=== PATIENT | female | born 1940 | race Caucasian/White ===

== ENCOUNTER 2016-09-30 16:19 | Inpatient (IN) | payer MEDICARE, OTHER ==
--- NOTE | ~2016-09-30 | EC ---
PATIENT:CAROL VIEIRA DATE OF SERVICE: 10/02/16 SEX: F MEDICAL RECORD: [id number] DATE OF : 42 LOCATION:D. D.212 AGE OF PATIENT: 75 ADMISSION DATE: 10/02/16 REFERRING PHYSICIAN: INTERPRETING PHYSICIAN: DAIN PALOMO M.D. ECHOCARDIOGRAM REPORT ECHO CHARGES 4 ECHO COMPLETE CLINICAL DIAGNOSIS: AFIB ECHOCARDIOGRAPHIC MEASUREMENTS (adult normal given) AC root (d.<3.7cm) 3.6 LV Septum d (<1.2 cm> 1.9 Valve Excursion 1.9 LV Septum (systole) 2.1 Left Atria (s.<4.0cm> 4.2 LVPW d(<1.2cm) 1.6 RV (d.<2.3cm) 3.5 LVPW (sytole) 1.7 LV diastole(<5.6CM) 5.4 MV E-F(>70mm/sec) LV systole 3.6 LVOT Diameter 1.9 MV exc.(>10mm) 1.6 Est.ejection fraction (50-75%) Pericardial Effusion N DOPPLER: LVIT A 66.0 E 4109 LA RVSP 44 LVOT 95 AOP1/2T 547 Asc. Ao 332 RVOT 67 RA PA 128 AV Gradient Peak 9.00 AV Mean 4.75 AV Area 1.9 MV Gradient Peak 8.12 MV Mean 2.87 MV Area COMMENTS: Glass Unloading Equipment Tender: Jessenia VACA Pump Mechanic:Jessenia Palomo TAPE# PACS DATE OF SERVICE: 10/01/2016 REFERRING PHYSICIAN: Dr. Griffiths. INDICATION: Atrial fibrillation. DESCRIPTION: Left ventricle demonstrates left ventricular hypertrophy. No wall motion abnormalities are noted. Estimated ejection fraction in the order of 55%. Mitral valve is structurally normal. There is moderate regurgitation noted. There is no evidence of prolapse. Left atrium is mildly dilated. The ECHOCARDIOGRAM REPORT [id number] CAROL VIEIRA aortic valve is trileaflet. There is mild insufficiency seen, but no evidence is stenosis. Right ventricle is mildly dilated. Tricuspid valve is structurally normal. There is mild regurgitation seen. Right ventricular systolic pressure is measured at 44 mmHg. There is no pericardial effusion seen. IMPRESSION: 1. Left ventricular hypertrophy with preserved ejection of 55%. 2. Moderate mitral regurgitation. 3. Mild aortic insufficiency. 4. Mild tricuspid regurgitation. TRANSINT:[id number] Voice Confirmation ID: [id number] DOCUMENT ID: [id number] DAIN PALOMO M.D. CC: [id number] DICTATION DATE: 10/02/16 1236 BUSINESS INTELLIGENCE ENGINEER: 10/03/16 0008 DIS IN 10/02/16 [facility] [address] [id number]
[2016-09-30 17:25] LABS: BASOPHILS 0.2 % (0-2); EOSINOPHILS 1.2 % (0-7); HEMATOCRIT 39.5 % (36.0-48.0); HEMOGLOBIN 13.6 g/dL (12-16); IMMATURE GRANULOCYTES 0.4 % (0-5); LYMPHOCYTES 9.2 % (15-50); MCH 33.5 pg (26.0-34.0); MCHC 34.4 g/dL (31.0-37.0); MCV 97.3 fL (80.0-100.0); MEAN PLATELET VOLUME 10.4 fL (7.4-10.4); PLATELET COUNT 160 10x3/uL (130-400); RBC 4.06 10x6/uL (4.00-5.40); RDW 12.8 % (11.5-14.5)
[2016-09-30 17:59] LABS: ALBUMIN 3.9 g/dL (3.4-5.0); ALKALINE PHOSPHATASE 115 U/L (46-116); ALT (SGPT) 33 U/L (10-68); BILIRUBIN - TOTAL 0.65 mg/dL (0.2-1.3); CALC OSMOLALITY 284 mosm/kg (275-300); CALCIUM 9.7 mg/dL (8.5-10.1); CARBON DIOXIDE 26.8 mmol/L (21.0-32.0); CHLORIDE - SERUM 104 mmol/L (98-107); CREATININE - SERUM 1.1 mg/dL (0.6-1.3); GLUCOSE 104 mg/dL (74-106); POTASSIUM - SERUM 3.8 mmol/L (3.5-5.1); PROTEIN - SERUM 7.4 g/dL (6.4-8.2); SODIUM 141 mmol/L (136-145); UREA NITROGEN 24 mg/dL (7-18); eGFR NON AFRICAN AMERICAN 51 mL/min (90-120)
[2016-09-30 18:10] LABS: CHOL - HDL RATIO 2.7 ratio (2.3-4.1); CHOLESTEROL, TOTAL 166 mg/dL (0-200); CREATINE KINASE 74 UL (21-215); HDL CHOLESTEROL 61 mg/dL (32-96); LDL CHOLESTEROL 81 mg/dL (0-100); LDL-HDL RATIO 1.3 ratio (1.5-3.5); PRO BNP 1887 pg/mL (0-125); TRIGLYCERIDE 121 mg/dL (30-200)
[2016-09-30 18:13] LABS: TROPONIN-I < 0.017 ng/mL (0.000-0.060)
[2016-09-30 19:27] LABS: APPEARANCE CLEAR (CLEAR); BILIRUBIN NEGATIVE (NEGATIVE); COLOR STRAW (YELLOW); GLUCOSE NEGATIVE (NEGATIVE); KETONE NEGATIVE (NEGATIVE); LEUKOCYTE ESTERASE TRACE (NEGATIVE); NITRITE POSITIVE (NEGATIVE); PROTEIN NEGATIVE (NEGATIVE); UROBILINOGEN NORMAL (NORMAL)
[2016-09-30 19:28] LABS: BACTERIA MANY /hpf (NONE SEEN); RED CELLS - URINE OCC /hpf (0-5); WHITE CELLS - URINE 0-5 /hpf (0-5)
--- NOTE | 2016-09-30 20:13 | NUR ---
REPORT RECIEVED FROM KARL FAIRCHILD
--- NOTE | 2016-09-30 21:12 | NUR ---
ARRIVED TO FLOOR VIA WHEELCHAIR, ACCOMPANIED BY HOSPITAL STAFF. ORIENTED TO UNIT AND PLACED ON TELEMETRY. CALL LIGHT IN REACH. SEE NURSE ASSESSMENT. WILL CONTINUE TO MONITOR.
[2016-10-01] MEDS ORDERED: OXYBUTYNIN CHLOR5 MG PO (00:09)
[2016-10-01] MEDS ORDERED: LOVASTATIN40 MG PO (00:11)
[2016-10-01] MEDS ORDERED: MAXZIDE 75/501 TAB PO (00:12)
[2016-10-01] MEDS ORDERED: DIPROLENE 0.05%60 M1 TOPICAL (00:12)
[2016-10-01] MEDS ORDERED: OMEPRAZOLE20 M1 PO (00:13)
[2016-10-01] MEDS ORDERED: TOPROL XL25 MG PO (00:14)
[2016-10-01 04:00] VITALS: BP 134/61
[2016-10-01 05:44] LABS: BASOPHILS 0.6 % (0-2); EOSINOPHILS 2.7 % (0-7); HEMATOCRIT 39.5 % (36.0-48.0); HEMOGLOBIN 13.4 g/dL (12-16); IMMATURE GRANULOCYTES 0.4 % (0-5); LYMPHOCYTES 11.6 % (15-50); MCH 33.4 pg (26.0-34.0); MCHC 33.9 g/dL (31.0-37.0); MCV 98.5 fL (80.0-100.0); MEAN PLATELET VOLUME 10.2 fL (7.4-10.4); MONOCYTES 12.8 % (2-11); NEUTROPHILS 71.9 % (40-80); RBC 4.01 10x6/uL (4.00-5.40); WBC 4.8 10x3/uL (4.8-10.8)
[2016-10-01 06:19] LABS: PLATELET COUNT 199 10x3/uL (130-400)
[2016-10-01 06:20] LABS: ALBUMIN 3.6 g/dL (3.4-5.0); ALKALINE PHOSPHATASE 99 U/L (46-116); ALT (SGPT) 33 U/L (10-68); CALC OSMOLALITY 287 mosm/kg (275-300); CALCIUM 9.6 mg/dL (8.5-10.1); CARBON DIOXIDE 25.4 mmol/L (21.0-32.0); CHLORIDE - SERUM 105 mmol/L (98-107); GLUCOSE 91 mg/dL (74-106); PRO BNP 1455 pg/mL (0-125); SODIUM 143 mmol/L (136-145); TROPONIN-I < 0.017 ng/mL (0.000-0.060); UREA NITROGEN 21 mg/dL (7-18); eGFR NON AFRICAN AMERICAN 57 mL/min (90-120)
[2016-10-01 06:23] LABS: POTASSIUM - SERUM 3.2 mmol/L (3.5-5.1)
--- NOTE | 2016-10-01 07:30 | NUR ---
RECEIVED PT IN BED AAOX4 RESP UNLABORED DENIES ANY NEEDS AT THIS TIME SHARP PAIN UNDER RT BREAST 07/10 WILL CONTINUE TO MONITOR
[2016-10-01 08:41] VITALS: BP 146/54
[2016-10-01 12:54] VITALS: BP 123/57
[2016-10-01 16:20] VITALS: BP 116/67; BP 125/57
[2016-10-01 19:00] VITALS: BP 121/52
--- NOTE | 2016-10-01 20:15 | NUR ---
PT RECEIVED LYING IN BED RESTING QUIETLY AT THIS TIME WITH EYES CLOSED. AROUSED EASILY. ASSESSMENT COMPLETED PER FLOW SHEET AT THIS TIME. PT DENIES NEEDS AT THIS TIME. BED LOW. PHONE AND CALL LIGHT IN REACH. SRX2.
--- NOTE | 2016-10-01 21:00 | NUR ---
PT IV INFILTRATED AT THIS TIME. REMOVED IV. CATHETER TIP INTACT. WILL RESITE IV.
--- NOTE | 2016-10-01 22:22 | NUR ---
IV INITIATED TO LEFT FOREARM PER KERWIN [place] X1 SUCCESSFUL STICK. PT TOLERATED WELL.
[2016-10-02] VITALS: BP 125/51
--- NOTE | 2016-10-02 00:31 | NUR ---
PT RESTING QUIETLY AT THIS TIME WITH EYES CLOSED. RESPIRATIONS EVEN, NON-LABORED. NO ACUTE DISTRESS NOTED AT THIS TIME. BED LOW. PHONE AND CALL LIGHT IN REACH. SRX2.
[2016-10-02 04:00] VITALS: BP 132/74
--- NOTE | 2016-10-02 05:14 | NUR ---
PROTONIX PO GIVEN AT THIS TIME PER ORDERS. PT DENIES NEEDS. BED LOW. PHONE AND CALL LIGHT IN REACH. SRX2.
--- NOTE | 2016-10-02 07:30 | NUR ---
PT UP TO BATHROOM RESP UNLABORED NAD NOTED DENIES ANY NEEDS
[2016-10-02 08:12] VITALS: BP 132/73
[2016-10-02 12:14] VITALS: BP 127/69
[2016-10-02 15:43] VITALS: BP 131/77
[2016-10-02] MEDS ORDERED: BETAPACE 80 MG80 MG PO (17:14)
[2016-10-02] MEDS ORDERED: HYDROCODON-ACE1 EAC7 PO (17:15)
--- NOTE | 2016-10-02 19:00 | NUR ---
RECIEVED REPORT FROM DAY SHIFT WITH DISCHARGE IN PROGRESS
[2016-10-02] MEDS ORDERED: ELIQUIS5 MG PO (21:39)
== END 2016-10-02 22:30 | disposition home or self-care (01) | DRG 313 ==
LOC: D.ER 16:19 → D.M2 19:33 → OBSVTIME 19:33 → D.M2 19:33
PROVIDERS: Emergency Medicine; ADMIT Family Medicine
DX: R07.89 Other chest pain (principal); R10.11 Right upper quadrant pain; I48.91 Unspecified atrial fibrillation; I10 Essential (primary) hypertension; E78.5 Hyperlipidemia, unspecified; S39.011A Strain of muscle, fascia and tendon of abdomen, initial encounter; X58.XXXA Exposure to other specified factors, initial encounter; Z87.891 Personal history of nicotine dependence

== ENCOUNTER 2016-09-30 19:33 | Outpatient (CLI) | payer MEDICARE, OTHER ==
[2016-10-01] MEDS ORDERED: OXYBUTYNIN CHLOR5 MG PO (00:09)
[2016-10-01] MEDS ORDERED: LOVASTATIN40 MG PO (00:11)
[2016-10-01] MEDS ORDERED: DIPROLENE 0.05%60 M1 TOPICAL (00:12)
[2016-10-01] MEDS ORDERED: MAXZIDE 75/501 TAB PO (00:12)
[2016-10-01] MEDS ORDERED: OMEPRAZOLE20 M1 PO (00:13)
[2016-10-01] MEDS ORDERED: TOPROL XL25 MG PO (00:14)
[2016-10-02] MEDS ORDERED: BETAPACE 80 MG80 MG PO (17:14)
[2016-10-02] MEDS ORDERED: HYDROCODON-ACE1 EAC7 PO (17:15)
[2016-10-02] MEDS ORDERED: ELIQUIS5 MG PO (21:39)
== END 2016-10-02 16:28 | disposition home or self-care (01) ==
LOC: D.OPS 19:33
DX: R07.9 Chest pain, unspecified (principal); R10.11 Right upper quadrant pain; I48.91 Unspecified atrial fibrillation

== ENCOUNTER → 2016-10-12 07:19 | Outpatient (CLI) | payer MEDICARE, OTHER ==
[~2016-10-12 07:19] MED LIST: BETAPACE 80 MG80 MG PO; DIPROLENE 0.05%60 M1 TOPICAL; ELIQUIS5 MG PO; HYDROCODON-ACE1 EAC7 PO; LOVASTATIN40 MG PO; MAXZIDE 75/501 TAB PO; OMEPRAZOLE20 M1 PO; OXYBUTYNIN CHLOR5 MG PO; TOPROL XL25 MG PO
== END | disposition home or self-care (01) ==
LOC: D.NM 07:19
DX: R10.9 Unspecified abdominal pain (principal); R11.0 Nausea

== ENCOUNTER → 2016-11-02 07:36 | Outpatient (CLI) | payer MEDICARE, OTHER | END | disposition home or self-care (01) | LOC: D.NM 07:36 | DX: R10.9 Unspecified abdominal pain (principal); R11.2 Nausea with vomiting, unspecified ==

== ENCOUNTER 2016-11-25 11:09 | Outpatient (CLI) | payer MEDICARE, OTHER ==
[~2016-11-25] VITALS: Ht 170.2 cm; Wt 88.6 kg
--- NOTE | ~2016-11-25 | HEMODYNAMI ---
PATIENT:CAROL VIEIRA MEDICAL RECORD: [id number] : 42 LOCATION:DTERRI ADMISSION DATE: 11/25/16 Generatedon:11/25/201613:08 Patient name: CAROL VIEIRA Patient #: [id number] SSN: : 1940 Date of study: 11/25/2016 Page: Of Hemodynamic Procedure Report Patient Data Patient Demographics Procedure consent was obtained First Name: CAROL Gender: Female Last Name: ISHA : 1940 Middle Initial: ERIC Age: 76 year(s) Patient #: [id number] Race: Additional ID: [id number] Contact details Address: [place] [place] [address] State: [place] City: [place] Zip code: [address] Admission Admission Data Admission Date: 11/25/2016 Admission Time: 11:09 Procedure Procedure Types Cath Procedure Diagnostic Procedure Cardioversion Procedure Description Procedure Date Procedure Date: 11/25/2016 Procedure Start Time: 12:56 Procedure Staff Name Function Twin Palomo MD Performing Physician Estela Fagan RN Nurse Nikita Worthington RT Director Public Policy Leon Pino RT Monitor Finesse Ferro MD Additional personnel Procedure Medications Medication Administration Route Dosage Oxygen NC 4 l/min Hemodynamics Rest Heart Rate: 82 (bpm) Snapshots Pre Cath Intra NCS Post Cath Vital Signs Time Heart Resp SPO2 NIBP (mmHg) Rhythm Pain Sedation Rate (ipm) (%) Status Level (bpm) 12:43:05 85 15 100 155/79(121) A-Fib 0 (11) 10(A) , No pain 12:47:29 73 17 100 153/80(107) A-Fib 0 (11) 10(A) , No pain 12:51:53 79 16 100 141/76(109) A-Fib 0 (11) 10(A) , No pain 12:56:30 51 25 100 120/56(70) A-Fib 0 (11) 9(A) , No pain 13:00:52 58 22 99 112/50(84) NSR 0 (11) 9(A) , No pain 13:04:41 64 20 99 104/53(73) NSR 0 (11) 10(A) , No pain Medications Time Medication Route Dose Verified Delivered Reason Notes Effective ness by by 12:44:19 Oxygen NC 4 Estela Estela used for l/min Rylan Rylan airborne electronics analyst sandstone inspector repairer Log Time Note 12:28:15 Informed consent obtained and on chart 12:: Diagnostic Cath Status : Elective 12:32:33 Nikita Worthington RT(R) (CV) sent for patient. Start room use. 12:32:37 Time tracking: Regular hours 12:32:46 Plan of Care:Hemodynamics will remain stable., Cardiac rhythm will remain stable., Comfort level will be maintained., Respiratory function will remain adequate., Patient/ family verbilizes understanding of procedure., Procedure tolerated without complication., Recovers from procedure without complications.. 12:33:47 Quick Combo opened to sterile field. 12:40:19 - 12:40:34 SEE ANESTHESIA NOTE FOR PRE PROCEDURE TIVA 12:40:37 - 12:40:41 H&P Date Dictated: 11/25/2016 H&P Addendum completed by physician on day of procedure. (MUST COMPLETE FOR ALL OUTPATIENTS). 12:40:42 Pre-procedure instructions explained to patient. 12:40:42 Pre-op teaching completed and patient verbalized understanding. 12:40:44 Family unavailable. 12:40:46 Patient NPO since Midnight. 12:40:51 Sharps counted by scrub and verified by RAlexNAlex 12:40:52 Alarms reviewed by RAlex Barrera 12:41:00 Quick Combo opened to sterile field. 12:41:38 Vital chart was started 12:41:39 ECG and BP/O2 sat monitors applied to patient. 12:41:52 Rhythm: atrial fibrillation 12:41:58 Baseline sample Acquired. 12:44:19 Oxygen 4 l/min NC was administered by Estela Fagan RN; used for procedure; 12:53:06 HERE FOR TIVA 12:53:12 Quick combo pads placed on patients chest and back. 12:54:00 Full Disclosure recording started 12:54:33 Physician arrived 12:54:33 --------ALL STOP TIME OUT------ 12:54:35 Final Timeout: patient, procedure, and site verified with staff and physician. All members of the team are in agreement. 12:54:43 Physical assessment completed. ASA score P 2 - A patient with mild systemic disease as per Twin Palomo MD. 12:54:47 Sedation plan: TIVA Propofol 12:55:00 Defibrillator synced and charged to 200 Joules. 12:55:00 Procedure started. 12:55:03 Shock delivered. 12:56:09 Patient cardioverted to sinus bradycardia. 12:57:42 Procedure ended.(Physican Out) 13:00:15 SEE ANESTHESIA NOTE FOR POST PROCEDURE TIVA 13:08:21 Report given to Pre/Post Procedure Room. 13:08:25 Patient transfered to Pre/Post Procedure Room with Stretcher. 13:08:56 Vital chart was stopped Device Usage Item Manufacture Quantity Catalog Hospital Part Current Minimal Lot# / Name Number Charge Number [facility]# Code ConvertMedia 2 [id number] Combo Signature Audit [place] Stage Time Signature Unsigned Intra-Procedure 11/25/2016 Leon 1:08:52 PM Odette RT (R) (CV) Signatures Monitor : Leon Signature : Odette RT Date : Time : [place] [address]
[2016-11-25] MEDS ORDERED: OMEPRAZOLE20 M1 PO (11:38)
[2016-11-25] MEDS ORDERED: TOPROL XL25 MG PO (11:38)
[2016-11-25] MEDS ORDERED: PRADAXA150 MG PO (11:38)
[2016-11-25] MEDS ORDERED: PAXIL20 MG PO (11:39)
[2016-11-25] MEDS ORDERED: AMITRIPTYLINE H50 MG PO (11:39)
[2016-11-25 11:48] VITALS: BP 139/65; Ht 170.2 cm; Wt 88.6 kg
[2016-11-25 11:52] LABS: BASOPHILS 0.5 % (0-2); EOSINOPHILS 2.3 % (0-7); HEMATOCRIT 40.8 % (36.0-48.0); IMMATURE GRANULOCYTES 0.3 % (0-5); LYMPHOCYTES 12.7 % (15-50); MCH 33.1 pg (26.0-34.0); MCHC 34.3 g/dL (31.0-37.0); MCV 96.5 fL (80.0-100.0); MEAN PLATELET VOLUME 9.5 fL (7.4-10.4); MONOCYTES 9.5 % (2-11); NEUTROPHILS 74.7 % (40-80); PLATELET COUNT 213 10x3/uL (130-400); RBC 4.23 10x6/uL (4.00-5.40)
[2016-11-25 12:09] LABS: INR 1.96 (0.85-1.17); PROTIME 22.3 SECONDS (11.6-15.0)
[2016-11-25 12:15] LABS: ANION GAP 17.2 mmol/L (8-16); CALCIUM 9.7 mg/dL (8.5-10.1); CARBON DIOXIDE 24.2 mmol/L (21.0-32.0); POTASSIUM - SERUM 3.4 mmol/L (3.5-5.1)
--- NOTE | 2016-11-25 13:21 | NUR ---
RECIEVED TO ROOM VIA STRETCHER FROM NURSING OFFICER WITH REPORTS OF ONE SHOCK AT 200 FOR SUCCUSSFUL CARDIOVERSION. HR NSR RATE 66 CHEST PAIN DENIED BP 127/63
--- NOTE | 2016-11-25 13:45 | NUR ---
1345 SITTING WITH HOB UP 30 DEGREES CHEST PAIN DENIED. NSR RATE 66 SANDWICH AND SODA TO BEDSIDE FAMILY ASSISTING
--- NOTE | 2016-11-25 14:14 | NUR ---
PIV REMOVED WITH DRESSING APPLIED. PATIENT UP TO GET DRESSED FOR DISCHARGE HOME CHEST PAIN DENIED
--- NOTE | 2016-11-25 14:23 | NUR ---
VERBAL AND WRITTEN DISCHARGE GONE OVER WITH PATIENT AND FAMILY. LEFT VIA WC TO PARKING FOR DISCHARGE HOME
== END 2016-11-25 14:24 | disposition home or self-care (01) ==
LOC: D.CATH 11:09
PROVIDERS: Internal Medicine Cardiovascular Disease
DX: I48.91 Unspecified atrial fibrillation (principal)

== ENCOUNTER → 2019-02-03 10:17 | Outpatient (CLI) | payer MEDICARE, OTHER ==
[2016-11-25 11:48] VITALS: BMI 30.6
[~2019-02-03 10:17] MED LIST changes: +AMITRIPTYLINE H50 MG PO; +PAXIL20 MG PO; +PRADAXA150 MG PO
== END | disposition home or self-care (01) ==
LOC: D.HCCECHO 10:17
PROVIDERS: ATTEND Internal Medicine Cardiovascular Disease
DX: I48.91 Unspecified atrial fibrillation (principal)